=== PATIENT | male | born 1980 | race American Indian/Alaskan Native ===

== ENCOUNTER 2021-08-24 21:57 | Emergency (ER) | payer SELFPAY ==
[2021-08-24 23:43] VITALS: BP 133/74
[2021-08-25] MEDS ORDERED: TETANUS,DIPH,PERTUSS(ACELL) VACCINE 0.5 ML SYRINGE IM ONE (05:09)
[2021-08-25] MEDS ORDERED: HYDROcodone/ACETAMINOPHEN 5-325 MG TAB PO STA (05:09)
--- NOTE | 2021-08-25 05:19 | Emergency Department Report ---
ED Upper Extremity Inj HPI - General Chief Complaint: Extremity Injury, Upper Stated Complaint: FISH HOOK STUCK IN RT HAND/FINGER Time Seen by Provider: 08/25/21 05:08 Source: patient Mode of arrival: Ambulatory Limitations: No Limitations - History of Present Illness Complaint: Injury to:: right, hand, finger -: Gradual Other Extremity Injury: Hand: Right Handedness: right Improves With: none Worsens With: none Context: injury (Puncture wound fishhook stuck into finger resulting in pain and throbbing while fishing earlier today) Associated Symptoms: denies other symptoms - Related Data Previous Rx's Medication Instructions Recorded Last Taken Type cephALEXin [Keflex] 500 mg PO Q8HR #21 cap 08/25/21 Unknown Rx Allergies Allergy/AdvReac Type Severity Reaction Status Date / Time No Known Allergies Allergy Verified 08/24/21 23:50 ED Review of Systems ROS: Stated complaint: FISH HOOK STUCK IN RT HAND/FINGER Other details as noted in HPI Comment: All other systems reviewed and negative ED Past Medical Hx - Medications Home Medications: Home Medications Medication Instructions Recorded Confirmed Last Taken Type cephALEXin [Keflex] 500 mg PO Q8HR #21 cap 08/25/21 Unknown Rx ED Physical Exam - General Limitations: No Limitations General appearance: alert, in no apparent distress - Head Head exam: Present: atraumatic, normocephalic - Eye Eye exam: Present: normal appearance, PERRL, EOMI Pupils: Present: normal accommodation - ENT ENT exam: Present: mucous membranes moist - Neck Neck exam: Present: normal inspection - Respiratory Respiratory exam: Present: normal lung sounds bilaterally. Absent: respiratory distress - Cardiovascular Cardiovascular Exam: Present: regular rate, normal rhythm. Absent: systolic murmur, diastolic murmur, rubs, gallop - GI/Abdominal GI/Abdominal exam: Present: soft, normal bowel sounds - Rectal Rectal exam: Present: deferred - Extremities Exam Extremities exam: Present: normal inspection, tenderness (Puncture wound to the right ring finger. Crestline stuck in place E. Wrist pulses 2+ full and motion of the finger.) - Back Exam Back exam: Present: normal inspection - Neurological Exam Neurological exam: Present: alert, oriented X3 - Psychiatric Psychiatric exam: Present: normal affect, normal mood - Skin Skin exam: Present: warm, dry, intact, normal color. Absent: rash ED Course Vital Signs 08/24/21 23:18 Temperature 98.0 F Pulse Rate 80 Respiratory 18 Rate Blood Pressure 133/74 O2 Sat by Pulse 98 Oximetry - Procedure Description Procedures done: Skin prepped and draped in sterile fashion that he received 2% lidocaine with no epinephrine. A very tiny puncture incision was made a at the entry point of the fishhook where it was removed with a pair forceps with no complications. Wound was irrigated and dressed with antimicrobial bandage ED Medical Decision Making - Medical Decision Making Crestline removed in its entirety Critical care attestation.: If time is entered above; I have spent that time in minutes in the direct care of this critically ill patient, excluding procedure time. ED Disposition Clinical Impression: Fish hook in finger, Tetanus toxoid inoculation Disposition: HOME / SELF CARE / HOMELESS Is pt being admited?: No Does the pt Need Aspirin: No Condition: Stable Instructions: VIS, Tetanus, Diphtheria (Td); Tetanus, Diphtheria, Pertussis (Tdap) - CDC Prescriptions: cephALEXin [Keflex] 500 mg PO Q8HR #21 cap Referrals: [facility] [Provider Group] - 3-5 Days
== END 2021-08-25 06:15 | disposition home or self-care (01) ==
LOC: ED 21:57
DX: S60.454A Superficial foreign body of right ring finger, initial encounter (principal); Z23 Encounter for immunization; X58.XXXA Exposure to other specified factors, initial encounter; Y93.89 Activity, other specified; Y92.89 Other specified places as the place of occurrence of the external cause; Y99.8 Other external cause status
CPT/HCPCS: 90471; 90715; 99282